=== PATIENT | female | born 1995 ===

== ENCOUNTER → 2020-03-25 | Outpatient (CLI) | payer SELFPAY | LOC: ZCOL.LAB 13:39 | DX: Z20.828 Contact with and (suspected) exposure to other viral communicable diseases (principal) ==

== ENCOUNTER 2022-08-18 14:30 | Outpatient (RCR) | payer BC | END 2022-08-19 | disposition home or self-care (01) | LOC: MKS.ESL.OT | DX: I63.512 Cerebral infarction due to unspecified occlusion or stenosis of left middle cerebral artery (principal) | CPT/HCPCS: G0283-GP ==

== ENCOUNTER 2022-09-16 09:45 | Outpatient (RCR) | payer BC | END 2022-09-18 | disposition home or self-care (01) | LOC: MKS.ESL.PT | DX: I63.512 Cerebral infarction due to unspecified occlusion or stenosis of left middle cerebral artery (principal) ==

== ENCOUNTER 2022-10-18 12:45 | Outpatient (RCR) | payer BC | END 2022-10-19 | disposition home or self-care (01) | LOC: WSST | DX: I69.351 Hemiplegia and hemiparesis following cerebral infarction affecting right dominant side (principal); I69.320 Aphasia following cerebral infarction; I69.390 Apraxia following cerebral infarction | CPT/HCPCS: G0283-GP ==

== ENCOUNTER 2023-05-19 09:00 | Outpatient (RCR) | payer MEDICAID | END 2023-05-21 | disposition home or self-care (01) | LOC: MKS.ESL.PT | DX: I63.512 Cerebral infarction due to unspecified occlusion or stenosis of left middle cerebral artery (principal) ==

== ENCOUNTER 2023-06-16 09:45 | Outpatient (RCR) | payer MEDICAID | END 2023-06-21 | disposition home or self-care (01) | LOC: MKS.ESL.OT | DX: I63.512 Cerebral infarction due to unspecified occlusion or stenosis of left middle cerebral artery (principal) ==

== ENCOUNTER 2023-07-14 09:00 | Outpatient (RCR) | payer MEDICAID | END 2023-07-20 | disposition still patient (30) | LOC: WSST | DX: I69.320 Aphasia following cerebral infarction (principal); I69.390 Apraxia following cerebral infarction ==